=== PATIENT | male | born 1945 | race Caucasian/White ===

== ENCOUNTER 2017-06-09 12:13 | Emergency (ER) | payer MEDICARE, BC ==
[~2017-06-09] VITALS: Ht 185.4 cm; Wt 95.3 kg
[2017-06-09] MEDS ORDERED: TETANUS AND DIPHTHERIA TOX/PF 0.5 ML VIAL. VAX IM ONE (13:00)
--- NOTE | 2017-06-09 13:07 | PHYS DOC ---
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 Patient complaining of headache and pain in his left knee after the fall patient rated his pain 3/10. Patient complaining of radiation of the pain to his neck and shoulders. Patient doesn't know about his last tetanus shot. Review of Systems Review of Systems Constitutional: Denies fever or chills [] Eyes: Denies change in visual acuity, redness, or eye pain [] HENT: Denies nasal congestion or sore throat [] Respiratory: Denies cough or shortness of breath [] Cardiovascular: No additional information not addressed in HPI [] GI: Denies abdominal pain, nausea, vomiting, bloody stools or diarrhea [] : Denies dysuria or hematuria [] Musculoskeletal: Denies back pain, reports joint pain [] Integument: Denies rash or skin lesions [] Neurologic: Denies focal weakness or sensory changes, reports headache [] Endocrine: Denies polyuria or polydipsia [] All other systems were reviewed and found to be within normal limits, except as documented in this note. Current Medications Current Medications Current Medications Medications (Trade) Dose Ordered Sig/Silverio Start Time Stop Time Status Last Admin Dose Admin Tetanus/ Diphtheria Toxoids Adsorbed (Tenivac Vial) 0.5 ml ONCE ONCE 06/09/17 12:45 06/09/17 12:46 UNV Allergies Allergies Allergies Coded Allergies Type Severity Reaction Last Updated Verified No Known Drug Allergies 06/09/17 No Physical Exam Physical Exam Constitutional: Well developed, well nourished, mild distress, non-toxic appearance. [] HENT: Normocephalic, bilateral external ears normal, oropharynx moist, no oral exudates, nose normal, 5 x 5 cm area of contusion and abrasion in occipital area. [] Eyes: PERRLA, EOMI, conjunctiva normal, no discharge. [] Neck: Normal range of motion, no tenderness, supple, no stridor. [] Cardiovascular:Heart rate regular rhythm, no murmur [] Lungs & Thorax: Bilateral breath sounds clear to auscultation [] Abdomen: Bowel sounds normal, soft, no tenderness, no masses, no pulsatile masses. [] Skin: Warm, dry, no erythema, no rash. [] Back: No tenderness, no CVA tenderness. [] Extremities: No tenderness, no cyanosis, no clubbing, ROM intact, no edema. Left knee without deformity or tenderness or ecchymosis, normal range of motion [] Neurologic: Alert and oriented X 3, normal motor function, normal sensory function, no focal deficits noted. [] Psychologic: Affect normal, judgement normal, mood normal. [] Current Patient Data Vital Signs Vital Signs Date Time Temp Pulse Resp B/P (MAP) Pulse Ox O2 Delivery O2 Flow Rate FiO2 06/09/17 12:30 98.1 82 18 99 Room Air EKG EKG [] Radiology/Procedures Radiology/Procedures CT head and neck was unremarkable, x-ray of left knee did not show fracture or dislocation[] Course & Med Decision Making Course & Med Decision Making Pertinent Imaging studies reviewed. (See chart for details) Impression of patient in ER showed 71-year-old male patient with history of inclusion body myositis and muscle weakness and frequent falling with a fall at home and head injury with scalp contusion and left knee pain. Patient had unremarkable CT head and neck and left knee. Patient did not want pain medication in ER. Tetanus shot was given in ER. Plan discharge patient home with Prescription of Tylenol No. 3 instruction to follow up with his primary care physician. [] Dragon Disclaimer Dragon Disclaimer This electronic medical record was generated, in whole or in part, using a voice recognition dictation system. Departure Departure: Impression: Primary Impression: Scalp contusion Additional Impressions: Fall at home Inclusion body myositis (IBM) Strain of left knee Head injury Disposition: HOME, SELF-CARE ([id number]) Condition: STABLE Referrals: JUDD JACOBO MD (PCP) Patient Instructions: Contusion, Fall Prevention and Home Safety, Muscle Cramps , [id number] Additional Instructions: Apply ice on the affected area Follow-up with your primary care physician in 3-5 days Return as needed Scripts Acetaminophen With Codeine (TYLENOL WITH CODEINE #3 TABLET) 1 Each Tablet 1 TAB PO Q4-6HRS, #30 TAB Prov: GILL ENGLISH MD 06/09/17 Problem Qualifiers GILL ENGLISH MD Jun 09, 2017 13:07
--- NOTE | 2017-06-09 13:19 | RAD ---
Indication: Fall and left knee pain. Time of exam 1301 hours. 3 views of the left knee were obtained. Alignment is normal. The joint spaces are well maintained. Articular surfaces are smooth. No fracture, dislocation or effusion is seen. Impression: No acute abnormality is detected.
--- NOTE | 2017-06-09 13:26 | RAD ---
Indication: Fall with laceration to the back of the head. Axial imaging through the brain and cervical spine was performed without contrast. Sagittal and coronal reformations were also performed. CT brain: The ventricular size and sulcal pattern are normal. 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 No sulcal effacement, midline shift or hemorrhage is detected. Cisterns are patent. The visualized. Nasal sinuses are clear apart from mucosal thickening of ethmoid air cells. Impression: No acute intracranial process is detected. CT cervical spine: Curvature and alignment is normal. There are postop changes of ACDF with anterior plate and screws transfixing the CT 3-4 level. The prevertebral tissues are normal. No fractures are seen. The odontoid appears intact. Multilevel degenerative disc and facet disease is seen. Impression: Postsurgical and chronic changes. No acute bony abnormality is detected. PQRS Compliance Statement: One or more of the following individualized dose reduction techniques were utilized for this examination: 1. Automated exposure control 2. Adjustment of the mA and/or kV according to patient size 3. Use of iterative reconstruction technique
[2017-06-09] MEDS ORDERED: ACET-704 PO (13:50)
[2017-06-09 14:09] VITALS: BP 132/87
== END 2017-06-09 14:10 | disposition home or self-care (01) ==
LOC: ER 12:13
DX: S86.912A Strain of unspecified muscle(s) and tendon(s) at lower leg level, left leg, initial encounter (principal); S00.03XA Contusion of scalp, initial encounter; I10 Essential (primary) hypertension; G72.41 Inclusion body myositis [IBM]; Z91.81 History of falling; W10.8XXA Fall (on) (from) other stairs and steps, initial encounter; Y93.89 Activity, other specified; Y99.8 Other external cause status; Y92.59 Other trade areas as the place of occurrence of the external cause
CPT/HCPCS: 70450; 72125; 73562; 90471; 90714; 99284-25

== ENCOUNTER → 2017-12-01 | Outpatient (CLI) | payer MEDICARE, BC ==
[~2017-12-01] MED LIST: ACET-704 PO
--- NOTE | 2017-12-01 12:35 | RAD ---
Left lower extremity venous Doppler ultrasound History: lt medial calf pain x's 3 days Comparison: None. Procedure: Color flow Doppler, Doppler spectral analysis, and 2D images are obtained with and without compression in the area of the common femoral vein, superficial femoral vein - femoral vein junction, main femoral vein (superficial femoral vein) and popliteal vein. Veins of the proximal calf are also imaged. Findings: There is normal color flow, augmentation, and compressibility of all visualized vein segments. No evidence of deep venous thrombus is present. There is a popliteal fossa cyst that appears to dissect down into the upper calf. Length is at least 4.5 cm. Measures approximately 0.8 cm AP by 2.4 cm transverse. IMPRESSION: No evidence of left lower extremity deep venous thrombosis. Electronically signed by: Lucio Suggs MD (12/01/2017 12:31 PM) [id number]
== END | disposition home or self-care (01) ==
LOC: US 10:51
PROVIDERS: ATTEND Physician Assistant
DX: M79.662 Pain in left lower leg (principal)
CPT/HCPCS: 93971

== ENCOUNTER 2018-11-18 18:31 | Emergency (ER) | payer MEDICARE, BC ==
[~2018-11-18] VITALS: Ht 185.4 cm; Wt 95.3 kg
--- NOTE | 2018-11-18 18:57 | PHYS DOC ---
Past History Past Medical History: Hypertension Additional Past Medical Histor: inclusion body myositis Past Surgical History: No Surgical History Alcohol Use: Occasionally Drug Use: None Adult General Chief Complaint Chief Complaint: LOWER EXT PAIN HPI HPI Patient is a 72 year old male who presents with complaint of left foot pain. The patient states that he suffered a fall less than an hour prior to arrival. Patient states that he has history of inclusion body myositis and has had history of frequent falls. States that he lost his balance, causing him to fall back. The patient states that his bottom fell close to his heels before falling back. The patient states that he was able to catch himself but did bump the back of his head on the ground. Denies headache or loss of consciousness. Patient states that currently he is experiencing very sharp pain to the third and fourth toes on his left foot. Denies pain to the ankle, lower leg, knee, or hip. States that range of motion is intact in his lower extremities. States that the pain severely worsens when he tries to move his toes on the left foot. Has not taken any medications to help with his symptoms since the fall. Review of Systems Review of Systems Constitutional: Denies fever or chills [] Eyes: Denies change in visual acuity, redness, or eye pain [] HENT: Denies nasal congestion or sore throat [] Respiratory: Denies cough or shortness of breath [] Cardiovascular: Denies chest pain or edema[] GI: Denies abdominal pain, nausea, vomiting, bloody stools or diarrhea [] : Denies dysuria or hematuria [] Musculoskeletal: Toe pain[] Integument: Denies rash or skin lesions [] Neurologic: Denies headache, focal weakness or sensory changes [] All other systems were reviewed and found to be within normal limits, except as documented in this note. Allergies Allergies Allergies Coded Allergies Type Severity Reaction Last Updated Verified No Known Drug Allergies 06/09/17 No Physical Exam Physical Exam Constitutional: Alert, afebrile, appears in mild discomfort. [] HENT: Normocephalic, atraumatic, bilateral external ears normal, oropharynx moist, no oral exudates, nose normal. [] Eyes: PERRLA, EOMI, conjunctiva normal, no discharge. [] Neck: Normal range of motion, no tenderness, supple, no stridor. [] Cardiovascular:Heart rate regular rhythm, no murmur [] Lungs & Thorax: Bilateral breath sounds clear to auscultation [] Abdomen: Bowel sounds normal, soft, no tenderness, no masses, no pulsatile masses. [] Skin: Warm, dry, no erythema, no rash. [] Back: No tenderness, no CVA tenderness. [] Extremities: Deformity of the left fourth toe at the PIP joint with tenderness to palpation, tenderness to palpation at base of left third toe, no midfoot or ankle tenderness to palpation, normal range of motion of all major joints, no cyanosis, no clubbing, ROM intact, no edema. [] Neurologic: Alert and oriented X 3, normal motor function, normal sensory function, no focal deficits noted. [] Current Patient Data Vital Signs Vital Signs Date Time Temp Pulse Resp B/P (MAP) Pulse Ox O2 Delivery O2 Flow Rate FiO2 11/18/18 18:31 84 16 98 Room Air Lab Results Not performed EKG EKG Not performed[] Radiology/Procedures Radiology/Procedures 3 view left foot x-ray interpreted by me: Dorsal lateral dislocation of fourth digit at the PIP joint[] Course & Med Decision Making Course & Med Decision Making Pertinent Labs and Imaging studies reviewed. (See chart for details) X-ray showed evidence of left fourth toe PIP dislocation. This was reduced in the emergency department with direct traction by myself after verbal consent was given. No anesthesia was required. Patient is moving the affected toe with better range of motion and alignment appears improved after reduction. Postreduction x-rays were not ordered as symptoms have improved at this time. The toes were bobbi taped together and patient provided with an postoperative shoe in the emergency department. Advised to use roller walker as needed to help prevent further falls. Advised follow-up with primary doctor in the next 3-5 days for reevaluation and return to emergency department for any worsening symptoms. Patient was understanding and in agreement with treatment plan. Dragon Disclaimer Dragon Disclaimer This electronic medical record was generated, in whole or in part, using a voice recognition dictation system. Departure Departure: Impression: Primary Impression: Toe joint dislocation Additional Impression: Fall from standing Disposition: HOME, SELF-CARE Condition: IMPROVED Referrals: JUDD JACOBO MD (PCP) Patient Instructions: Fall Prevention and Home Safety, Toe Dislocation Additional Instructions: Follow-up with your primary doctor in the next 3-5 days for reevaluation. Return to the emergency department for any worsening symptoms. Problem Qualifiers Primary Impression: Toe joint dislocation Encounter type: initial encounter Laterality: left Qualified Codes: S93.105A - Unspecified dislocation of left toe(s), initial encounter Additional Impression: Fall from standing Encounter type: initial encounter Qualified Codes: W19.XXXA - Unspecified fall, initial encounter KARAN DURBIN MD November 18, 2018 18:57
[2018-11-18 21:06] VITALS: BP 142/72
--- NOTE | 2018-11-19 | RAD ---
Three-view left foot radiographs 11/18/2018 CLINICAL HISTORY: Fall with injury to the left foot. AP, lateral and oblique digital radiographs left foot were obtained. There is diffuse osteopenia the visualized bony structures. Question subluxation of the middle phalanx of the left fourth toe at the level of the PIP joint is noted. Clinical correlation with the patient's injury is recommended. No fracture is seen. Mild to moderate degenerative changes are seen throughout the interphalangeal joints of the first MTP and tarsometatarsal joints of the left foot. IMPRESSION: Question subluxation of the PIP joint of the left fourth toe. Clinical correlation with the patient's injury is recommended. No fracture is seen. Electronically signed by: Ji Johnson MD (11/18/2018 11:57 PM) [facility]
== END 2018-11-18 21:00 | disposition home or self-care (01) ==
LOC: ER 18:31
DX: S93.115A Dislocation of interphalangeal joint of left lesser toe(s), initial encounter (principal); G72.41 Inclusion body myositis [IBM]; I10 Essential (primary) hypertension; Z91.81 History of falling; W18.39XA Other fall on same level, initial encounter; Y93.89 Activity, other specified; Y92.89 Other specified places as the place of occurrence of the external cause; Y99.8 Other external cause status
CPT/HCPCS: 28660; 73630; 99284

== ENCOUNTER → 2019-03-15 | Outpatient (CLI) | payer MEDICARE, BC ==
[~2019-03-15] MED LIST changes: +IOHEXOL 240 MG/ML 50ML VIAL. ONE; +IOHEXOL 240 MG/ML 50ML VIAL. PO ONE; +IOHEXOL 300 MG/ML 75 ML VIAL. IV ONE
--- NOTE | 2019-03-15 16:55 | RAD ---
Examination: CT ABD PELV W/ORAL IV CONTRAST History: Epigastric abdominal tenderness Comparison/Correlation: None Findings: Axial images of the abdomen and pelvis were obtained following IV and oral contrast. Sagittal and coronal images were provided. Small hiatal hernia is present. Coronary arterial calcifications noted. Small hiatal hernia is present. Left hepatic dome segment 2 cyst measuring 2.7 cm in diameter is present. Smaller cystic lesions are present about the intrahepatic inferior vena cava. Linear low attenuation involving the left hepatic lobe is present which may represent underlying biliary prominence. The gallbladder fossa is unremarkable. Spleen, pancreas, adrenal glands are unremarkable. Multiple bilateral renal cysts are present. Calcific septation of a right renal cyst medially at the upper pole is noted. This cyst measures up to 3.1 cm diameter. Calcification of the wall of the right renal lower pole cyst is also evident. Small umbilical hernia contains fat. Appendix is normal. Diverticulosis is present without findings of acute inflammation. Calcific involvement of the abdominal aorta and iliac arteries noted. Significant calcific involvement of the right common femoral artery in particular noted. Urinary bladder is unremarkable. Moderate L5-S1 disc space narrowing is present. Impression: Small hiatal hernia. No acute inflammatory process. Renal cysts are present and some have calcific involvement. Correlation with ultrasound exam is recommended if stability is unknown. Diverticulosis. PQRS Compliance Statement: One or more of the following individualized dose reduction techniques were utilized for this examination: 1. Automated exposure control 2. Adjustment of the mA and/or kV according to patient size 3. Use of iterative reconstruction technique Electronically signed by: Pedro Tomas MD (03/15/2019 4:52 PM) [facility]
== END | disposition home or self-care (01) ==
LOC: CT 08:12
PROVIDERS: ATTEND Family Medicine
DX: K44.9 Diaphragmatic hernia without obstruction or gangrene (principal); K76.89 Other specified diseases of liver; N28.1 Cyst of kidney, acquired; K42.9 Umbilical hernia without obstruction or gangrene; K57.90 Diverticulosis of intestine, part unspecified, without perforation or abscess without bleeding; I25.10 Atherosclerotic heart disease of native coronary artery without angina pectoris; J44.9 Chronic obstructive pulmonary disease, unspecified; I10 Essential (primary) hypertension; N28.89 Other specified disorders of kidney and ureter; M48.07 Spinal stenosis, lumbosacral region
CPT/HCPCS: 74177; Q9966

== ENCOUNTER → 2019-03-22 | Outpatient (CLI) | payer MEDICARE, BC ==
[~2019-03-22] MED LIST changes: -IOHEXOL 240 MG/ML 50ML VIAL. ONE; -IOHEXOL 240 MG/ML 50ML VIAL. PO ONE; -IOHEXOL 300 MG/ML 75 ML VIAL. IV ONE
--- NOTE | 2019-03-22 16:10 | RAD ---
Examination: RENAL COMPLETE BILATERAL History: Renal cysts Comparison/Correlation: None Findings: Right kidney measures 12.6 x 6.1 cm x 6.7 cm. At its superior pole, there is a 1.3 cm x 6.9 cm x 8.6 mm diameter cyst. Additional smaller cysts are present involving the right kidney. Few thin septations are present. No mass component or suspicious septations. Left kidney measures 10.9 cm x 6 mL by 6 x 1 cm. Superior pole cyst measuring 5.8 cm x 4.8 cm x 5 cm is present. Additional smaller cysts are present. No mass component. A few thin septations are present. No hydronephrosis or nephrolithiasis. Renal cortical echotexture is unremarkable. Renal contours are otherwise unremarkable. A few calculi are present in the gallbladder with the largest of these measuring up to 1.2 cm diameter. Inferior vena cava is unremarkable. Urinary bladder volume is 147 cc. Impression: Bilateral renal cysts. No suspicious components. Cholelithiasis. Electronically signed by: Pedro Tomas MD (03/22/2019 4:07 PM) [facility]
== END | disposition home or self-care (01) ==
LOC: US 09:43
PROVIDERS: ATTEND Family Medicine
DX: N28.1 Cyst of kidney, acquired (principal); K80.20 Calculus of gallbladder without cholecystitis without obstruction
CPT/HCPCS: 76770

== ENCOUNTER 2020-10-20 16:55 | Emergency (ER) | payer MEDICARE, BC ==
[~2020-10-20] VITALS: Ht 185.4 cm; Wt 85.5 kg
[2020-10-20 17:38] VITALS: BP 120/77
--- NOTE | 2020-10-20 18:06 | PHYS DOC ---
Past History Past Medical History: GERD, Hypertension Additional Past Medical Histor: inclusion body myositis Past Surgical History: No Surgical History Alcohol Use: None Drug Use: None General Adult EDM: Chief Complaint: NAUSEA/VOMITING/DIARRHEA HPI: HPI: ".. I think I got sick after eating at [employer].. on . " " My bobbi who I was eating with did not get sick...".." I think it probably food poisoning..." It is just that I am starting to feel a little rundown".." I am very distended and gassy...".." And now I noticed some blood in my urine.." Patient is a 74 year old male who presents with above hx of nausea, vomiting, diarrhea, bloating, malaise since Thursday after eating at [employer]. Patient denies any recent travel. No specific ill contacts. Normally fairly healthy with exception of a diagnosis of inclusional body myositis. The patient follows with Dr. Pandya. Patient's previous Covid's have been negative. Patient has history of GERD and hypertension. Patient denies any previous history of kidney stones. No history of trauma. Review of Systems: Review of Systems: Constitutional: Denies fever or chills Eyes: Denies change in visual acuity HENT: Denies nasal congestion or sore throat Respiratory: Denies cough or shortness of breath Cardiovascular: Denies chest pain or edema GI: Complains of abdominal discomfort, nausea, vomiting, diarrhea and bloating : Denies dysuria. Complains of some hematuria Musculoskeletal: Denies back pain or joint pain Integument: Denies rash Neurologic: Denies headache, focal weakness or sensory changes Endocrine: Denies polyuria or polydipsia Lymphatic: Denies swollen glands Psychiatric: Denies depression or anxiety Family History: Family History: Noncontributory presentation Current Medications: Current Meds: See nursing for home meds Allergies: Allergies: Allergies Coded Allergies Type Severity Reaction Last Updated Verified No Known Drug Allergies 06/09/17 No Physical Exam: PE: Constitutional: Moderate acute distress, non-toxic appearance. [] HENT: Normocephalic, atraumatic, bilateral external ears normal, oropharynx dry, no oral exudates, nose normal. [] Eyes: PERRLA, EOMI, conjunctiva normal, no discharge. [] Neck: Normal range of motion, no tenderness, supple, no stridor. [] Cardiovascular:Heart rate regular rhythm, no murmur [] Lungs & Thorax: Bilateral breath sounds equal at apex on auscultation [] Abdomen: Bowel sounds hyperactive, soft, generalized tenderness, no masses, no pulsatile masses. No focal areas of rebound. Very tympanic and distended. Skin: Warm, dry, no erythema, no rash. [] Back: No tenderness, no CVA tenderness. [] Extremities: No tenderness, no cyanosis, no clubbing, ROM intact, no edema. No psoas sign Neurologic: Alert and oriented X 3, normal motor function, normal sensory function, no focal deficits noted. [] Psychologic: Affect anxious, judgement normal, mood normal. [] Current Patient Data: Vital Signs: Vital Signs Date Time Temp Pulse Resp B/P (MAP) Pulse Ox O2 Delivery O2 Flow Rate FiO2 10/20/20 17:38 98.0 87 18 120/77 (91) 97 EKG: EKG: [] Radiology/Procedures: Radiology/Procedures: [][place] [address] IMAGING REPORT Signed PATIENT: CELINE LEONARDO ACCOUNT: [id number] : 1945 LOCATION: ER AGE: 74 SEX: M EXAM STATUS: REG ER ORD. PHYSICIAN: WERO SIMMS MD REASON: hematuria, n/v PROCEDURE: ACUTE ABDOMEN SERIES Exam: Acute abdominal series INDICATION: Hematuria TECHNIQUE: Frontal view of the chest with upright and supine views Comparisons: None FINDINGS: The cardiomediastinal silhouette and pulmonary vessels are within normal limits. The lung and pleural spaces are clear. Air and stool are noted throughout the colon to level the rectum in a nonobstructive bowel gas pattern. No suspicious masses or calcifications. Visualized osseous structures are unremarkable. IMPRESSION: 1. No acute cardiopulmonary process. 2. Nonobstructive bowel gas pattern. Electronically signed by: Cristiano Marie MD (10/20/2020 6:51 PM) [facility] DICTATED AND SIGNED BY: CRISTIANO MARIE MD DATE: 10/20/20 1850 CC: JUDD PANDYA MD; WERO SIMMS MD ~MTH0 0 Heart Score: C/O Chest Pain: N/A Risk Factors: Risk Factors: DM, Current or recent (<one month) smoker, HTN, HLP, family history of CAD, obesity. Risk Scores: Score 0 - 3: 2.5% MACE over next 6 weeks - Discharge Home Score 4 - 6: 20.3% MACE over next 6 weeks - Admit for Clinical Observation Score 7 - 10: 72.7% MACE over next 6 weeks - Early Invasive Strategies Course & Med Decision Making: Course & Med Decision Making Pertinent Labs and Imaging studies reviewed. (See chart for details) Patient received boluses of fluid and Zofran. With reports marked improvement of his overall symptoms. Patient recommended to stay on a clear fluid diet for the next 2 days. No solids no milk products. Follow-up pending labs. Follow- up with Dr. Pandya. Return if any concerns. If active vomiting may take Zofran. Return if any concerns. Must have follow-up UA and make sure hematuria has resolved. Impression: 1. Suspect food poisoning versus viral gastroenteritis 2. Dehydration 3. Hematuria 4. History of inclusion body myositis 5. Mild elevation AST 54 and ALT 71 [] Dragon Disclaimer: Dragon Disclaimer: This electronic medical record was generated, in whole or in part, using a voice recognition dictation system. Departure Departure: Referrals: JUDD PANDYA MD (PCP) Scripts Ondansetron Hcl (ZOFRAN) 4 Mg Tablet 8 MG PO QIDPRN PRN for NAUSEA/VOMITING, #30 TAB Prov: WERO SIMMS MD 10/20/20 Dragon Disclaimer This chart was dictated in whole or in part using Voice Recognition software in a busy, high-work load, and often noisy Emergency Department environment. It may contain unintended and wholly unrecognized errors or omissions. Dragon Disclaimer This chart was dictated in whole or in part using Voice Recognition software in a busy, high-work load, and often noisy Emergency Department environment. It may contain unintended and wholly unrecognized errors or omissions. WERO SIMMS MD October 20, 2020 18:05
[2020-10-20] MEDS ORDERED: FAMOTIDINE 20 MG/2 ML VIAL IVP ONE (18:15)
[2020-10-20] MEDS ORDERED: KETOROLAC 30 MG/ML VIAL. IVP ONE (18:15)
[2020-10-20] MEDS ORDERED: IV RINGERS SOLUTION,LACTATED 1,000 ML IV SCH (18:15)
[2020-10-20] MEDS ORDERED: ONDANSETRON PF 4 MG/2 ML VIAL. IVP ONE (18:15)
[2020-10-20 18:21] LABS: CALCIUM 8.7 mg/dL (8.5-10.1); CREATININE 0.8 mg/dL (0.7-1.3); POTASSIUM 4.1 mmol/L (3.5-5.1)
[2020-10-20 18:28] LABS: ALBUMIN 3.9 g/dL (3.4-5.0); DIRECT BILIRUBIN 0.3 mg/dL (0.0-0.2); TOTAL BILIRUBIN 0.8 mg/dL (0.2-1.0); TOTAL PROTEIN 7.3 g/dL (6.4-8.2)
[2020-10-20 18:46] LABS: BASO % 1 % (0-3); EOS # 0.1 x10^3/uL (0.0-0.7); EOS % 3 % (0-3); HEMOGLOBIN 15.6 g/dL (13.0-17.5); LYMPH # 1.4 x10^3/uL (1.0-4.8); LYMPH % 26 % (24-48); MEAN CORPUSCULAR HEMOGLOBIN 32 pg (25-35); MEAN CORPUSCULAR HGB CONC 34 g/dL (31-37); MEAN CORPUSCULAR VOLUME 95 fL (79-100); MONO # 0.7 x10^3/uL (0.0-1.1); MONO % 13 % (0-9); NEUT # 3.1 x10^3uL (1.8-7.7); NEUT % 59 % (31-73); PLATELET COUNT 154 x10^3/uL (140-400); RED BLOOD COUNT 4.85 x10^6/uL (4.30-5.70); RED CELL DISTRIBUTION WIDTH 12.8 % (11.5-14.5); WHITE BLOOD COUNT 5.4 x10^3/uL (4.0-11.0)
[2020-10-20 18:52] LABS: BILIRUBIN,URINE NEG (NEG); CLARITY,URINE CLEAR; COLOR,URINE AMBER; GLUCOSE,URINE NEG (NEG); NITRITE,URINE NEG (NEG)
[2020-10-20 18:53] LABS: BACTERIA,URINE 0 /HPF (0-FEW); RBC,URINE >40 /HPF (0-2); WBC,URINE 0 /HPF (0-4)
--- NOTE | 2020-10-20 18:53 | RAD ---
Exam: Acute abdominal series INDICATION: Hematuria TECHNIQUE: Frontal view of the chest with upright and supine views Comparisons: None FINDINGS: The cardiomediastinal silhouette and pulmonary vessels are within normal limits. The lung and pleural spaces are clear. Air and stool are noted throughout the colon to level the rectum in a nonobstructive bowel gas patter n. No suspicious masses or calcifications. Visualized osseous structures are unremarkable. IMPRESSION: 1. No acute cardiopulmonary process. 2. Nonobstructive bowel gas pattern. Electronically signed by: Cristiano Stevens MD (10/20/2020 6:51 PM) [facility]
[2020-10-20] MEDS ORDERED: ONDA4TAB7 PO (19:43)
== END 2020-10-20 20:27 | disposition home health service (06) ==
LOC: ER 16:55
DX: E86.0 Dehydration (principal); R31.9 Hematuria, unspecified; R79.89 Other specified abnormal findings of blood chemistry; K21.9 Gastro-esophageal reflux disease without esophagitis; I10 Essential (primary) hypertension
CPT/HCPCS: 36415; 74022; 80048; 80076; 81001; 82150; 82550; 83690; 84484; 85025; 85610; 85730; 96361; 96374; 96375; 99284; J1885; J2405; J3490; J7120

== ENCOUNTER → 2020-10-31 | Outpatient (CLI) | payer MEDICARE, BC ==
[2020-10-20 17:38] VITALS: BP 120/77
[~2020-10-31] MED LIST changes: +IOHEXOL 300 MG/ML 75 ML VIAL. IV ONE; +ONDA4TAB7 PO
--- NOTE | 2020-10-31 14:23 | RAD ---
CT ABDOMEN+PELVIS WO+W History: Gross hematuria. Comparison: CT abdomen and pelvis 03/15/2019 Technique: CT angiogram of the abdomen and pelvis with noncontrast, nephrographic and excretory phase series after intravenous contrast. Findings: The lung bases are clear. No pleural or pericardial effusion. Moderate coronary artery calcification. A few benign hepatic cysts, the largest measures 2.2 cm in the left hepatic lobe. Diffuse hepatic hyp odensity compatible steatosis. Layering density in the gallbladder suggest small stones or sludge. No biliary ductal dilatation. The pancreas, spleen and adrenal glands are unremarkable. Multiple bilateral renal cysts. A large 7.9 x 6.7 cm cyst at the inferior pole of the right kidney de monstrates a septation with focally thickened calcification. A 4.6 x 3.1 cm cyst at the interpolar ri ght kidney demonstrates a thin septation with slightly thickened calcification. A 2.3 x 1.9 cm left r enal interpolar cyst demonstrates a few subtle septations. No enhancing renal masses are identified. No hydronephrosis or nephrolithiasis identified. Excretory images demonstrate normally opacified uret ers and renal pelvises without mass identified. No intravesicular masses identified. The bladder wall is mildly thickened diffusely. There is inferior mass effect on the bladder from the enlarged prosta te. Small hiatal hernia. There is colonic diverticulosis without evidence for diverticulitis. Aortoiliac atherosclerotic calcification without aneurysm. No abdominal pelvic adenopathy. No intraperitoneal fr ee air or free fluid. Small fat-containing umbilical hernia. Fat contained within the right greater than left inguinal loy ls. Degenerative changes of the spine without acute osseous abnormality or suspicious lytic or sclero tic lesion. Impression: 1. Bilateral Bosniak 2 renal lesions. Recommend follow-up renal CT in one year. 2. Mild diffuse bladder wall thickening and mass effect from the prostate of the inferior bladder. C orrelate for outlet obstruction. No urothelial lesion identified as source of hematuria. 3. Hepatic steatosis. 4. Diverticulosis without diverticulitis. ------ Exposure: One or more of the following individualized dose reduction techniques were utilized for thi s examination: 1. Automated exposure control 2. Adjustment of the mA and/or kV according to patient size 3. Use of iterative reconstruction technique. Electronically signed by: Flo Mohamud MD (10/31/2020 2:21 PM) [facility]
== END ==
LOC: CT 11:09
PROVIDERS: ATTEND Family Medicine
DX: N28.1 Cyst of kidney, acquired (principal); K76.89 Other specified diseases of liver; K44.9 Diaphragmatic hernia without obstruction or gangrene; K42.9 Umbilical hernia without obstruction or gangrene; K76.0 Fatty (change of) liver, not elsewhere classified
CPT/HCPCS: 74178; Q9967

== ENCOUNTER 2021-03-01 11:40 | Emergency (ER) | payer MEDICARE, BC ==
[~2021-03-01] VITALS: Ht 177.8 cm; Wt 86.4 kg
[~2021-03-01 11:40] MED LIST changes: -IOHEXOL 300 MG/ML 75 ML VIAL. IV ONE
--- NOTE | 2021-03-01 12:02 | PHYS DOC ---
Past History Past Medical History: GERD, Hypertension Additional Past Medical Histor: inclusion body myositis, BPH Past Surgical History: Other Additional Past Surgical Histo: vasectomy, cervical discectomy with fusion Alcohol Use: None Drug Use: None General Adult EDM: Chief Complaint: MECHANICAL FALL HPI: HPI: Patient is a 75-year-old male brought by EMS after a fall with loss of consciousness. EMS was to let bystanders that they estimate his lost consciousness to be about 2 minutes. Patient states that he was at the grocery store outside on the concrete when his car started going from needed shuffle to reach out to get it his knees "buckled" and he fell striking the back of his head. Denies any blood thinner use. States he gets dizzy with laying flat. Last tetanus 7 years ago. Complaining of pain in bilateral knees and the back of head. Has a history of inclusion body myositis diagnosed in 2013. Review of Systems: Review of Systems: All other systems within normal limits except for as noted in the HPI Allergies: Allergies: Allergies Coded Allergies Type Severity Reaction Last Updated Verified No Known Drug Allergies 06/09/17 No Physical Exam: PE: Constitutional: Well developed, well nourished, no acute distress, non-toxic appearance. [] HENT: Normocephalic, atraumatic, bilateral external ears normal, nose normal. [] Eyes: PERRLA, conjunctiva normal, no discharge. [] Neck: No rigidity, supple, no stridor. [] Cardiovascular: Regular rate and rhythm, brisk cap refill [] Lungs & Thorax: Non labored symmetric respirations, no tachypnea or respiratory distress [] Abdomen: Soft, nondistended. Skin: Warm, dry, no erythema, no rash. [] Back: Unremarkable Extremities: No deformities, range of motion grossly intact, no lower extremity edema. Tenderness of bilateral knees [] Neurologic: Alert and oriented X 3, no focal deficits noted. [] Psychologic: Affect normal, judgement normal, mood normal. [] EKG: EKG: [] Radiology/Procedures: Radiology/Procedures: [address] [address] IMAGING REPORT Signed PATIENT: CELINE LEONARDO ACCOUNT: [id number] : 1945 LOCATION: ER AGE: 75 SEX: M EXAM STATUS: REG ER ORD. PHYSICIAN: DIAMOND FRANCO MD REASON: fall, loc, hit back of head PROCED[facility]: [facility] Compliance Statement: One or more of the following individualized dose reduction techniques were utilized for this examination: 1. Automated exposure control 2. Adjustment of the mA and/or kV according to patient size 3. Use of iterative reconstruction technique CT head and cervical spine without contrast 03/01/2021 12:22 PM INDICATION: Fall, loss of consciousness. Hit back of head. COMPARISON: CT head and cervical spine 06/09/2017 TECHNIQUE: Multiple axial CT images of the head were obtained from skull base through the vertex without intravenous contrast. Multiple axial CT images of the cervical spine were obtained without intravenous contrast. Coronal and sagittal reformats are provided. FINDINGS: Head: Ventricles, sulci and basal cisterns are within normal limits. Remote lacunar infarct identified within the right posterior limb internal capsule. There is no hydrocephalus. Unger-white matter differentiation is normal. There is no acute intracranial hemorrhage. There is no mass, mass effect or midline shift. Posterior fossa is normal in appearance. Senescent calcifications identified in the basal ganglia. Low-attenuation in the periventricular white matter is suggestive of chronic small vessel ischemic changes. Visualized portions of the orbits are normal. Paranasal sinuses are well aerated. Mastoid air cells are well aerated. Scalp and calvaria are normal. Cervical spine: Skull base is intact. Craniocervical junction is normal in appearance. Atlantoaxial articulation is normal. Vertebral body heights are maintained without evidence for acute fracture. Anterior cervical discectomy and fusion hardware is identified at C3-C4. There is no lucency surrounding the hardware. There is partial osseous fusion of C4-C5 with ossification along the disc space. There is 2 mm anterolisthesis of C5 on C6. There is facet fusion at C3-C4 and C4-C5 bilaterally. At C2-C3, there is no significant disc herniation. There is moderate severe right and moderate left facet arthropathy. Moderate right and mild to moderate left neuroforaminal stenosis. At C4-C5, there is a posterior disc osteophyte complex with severe right and moderate left facet arthropathy and mild uncovertebral joint disease resulting in moderate bilateral neuroforaminal stenosis. At C6-C7, there is a posterior disc osteophyte complex with central disc protrusion. Moderate facet and uncovertebral joint disease. Mild bilateral neuroforaminal stenosis. Mild spinal canal stenosis. There is no prevertebral soft tissue swelling. Thyroid gland is normal in appearance. Visualized portions of the lung apices are normal without evidence for suspicious pulmonary nodule or infiltrate. IMPRESSION: 1. No acute intracranial hemorrhage. Remote lacunar infarct in the posterior limb right internal capsule. Low-attenuation in the periventricular white matter is suggestive of chronic small vessel ischemic changes. 2. No acute fracture of the cervical spine. Anterior cervical discectomy and fusion identified at C3-C4 without evidence for hardware failure. Mild to moderate cervical spondylosis as detailed above. Electronically signed by: Erick Bryant MD (03/01/2021 1:27 PM) [id number] DICTATED AND SIGNED BY: ERICK BRYANT MD DATE: 03/01/21 1308 CC: JUDD JACOBO MD; DIAMOND FRANCO MD ~MTH0 0 [][place] [id number] IMAGING REPORT Signed PATIENT: CELINE LEONARDO ACCOUNT: [id number] : 1945 LOCATION: ER AGE: 75 SEX: M EXAM STATUS: REG ER ORD. PHYSICIAN: DIAMOND FRANCO MD REASON: fall, bilateral knee pain PROCEDURE: KNEE BILAT 3V EXAM: XR KNEE 3 VIEWS 03/01/2021 12:22 PM CLINICAL INDICATION: Fall, bilateral knee pain COMPARISON: None TECHNIQUE: 3 views of the right and left knee FINDINGS: Left knee: There is a suspected avulsion fracture of the tibial tuberosity with soft tissue thickening and irregularity of the patellar tendon and pretibial edema. No other fracture. The bones are demineralized. No joint effusion. Right knee: No acute fracture there is suspected avulsion injury of the tibial tuberosity with irregular appearance of the patellar tendon stripe and pretibial soft tissue swelling. No other fracture or malalignment. No joint effusion. Joint spaces are maintained. The bones are diffusely demineralized. IMPRESSION: Findings of bilateral patellar tendon avulsion injuries with small avulsion fractures of the tibial tuberosities and abnormal appearance of the patellar tendon demonstrates. Moderate overlying soft tissue swelling. Electronically signed by: Diamond Berry MD (03/01/2021 12:46 PM) [id number] DICTATED AND SIGNED BY: DIAMOND BERRY MD DATE: 03/01/21 1242 CC: JUDD JACOBO MD; DIAMOND FRANCO MD ~MTH0 0 Heart Score: C/O Chest Pain: No Risk Factors: Risk Factors: DM, Current or recent (<one month) smoker, HTN, HLP, family hi story of CAD, obesity. Risk Scores: Score 0 - 3: 2.5% MACE over next 6 weeks - Discharge Home Score 4 - 6: 20.3% MACE over next 6 weeks - Admit for Clinical Observation Score 7 - 10: 72.7% MACE over next 6 weeks - Early Invasive Strategies Course & Med Decision Making: Course & Med Decision Making Discussed with Dr. Montelongo, agrees with plan to put in knee immobilizer and follow-up in clinic. Holley Disclaimer: Holley Disclaimer: This electronic medical record was generated, in whole or in part, using a voice recognition dictation system. Departure Departure: Impression: Primary Impression: Fall Additional Impressions: Avulsion of patellar tendon Scalp hematoma Disposition: HOME / SELF CARE / HOMELESS Condition: STABLE Referrals: JUDD JACOBO MD (PCP) Patient Instructions: Knee Immobilizer-Brief Additional Instructions: Call to schedule appointment with Stan Montelongo DO [facility] [address] [place] [address] DIAMOND FRANCO MD Mar 01, 2021 12:02
--- NOTE | 2021-03-01 12:49 | RAD ---
EXAM: XR KNEE 3 VIEWS 03/01/2021 12:22 PM CLINICAL INDICATION: Fall, bilateral knee pain COMPARISON: None TECHNIQUE: 3 views of the right and left knee FINDINGS: Left knee: There is a suspected avulsion fracture of the tibial tuberosity with soft tissue thickenin g and irregularity of the patellar tendon and pretibial edema. No other fracture. The bones are demin eralized. No joint effusion. Right knee: No acute fracture there is suspected avulsion injury of the tibial tuberosity with irregu lar appearance of the patellar tendon stripe and pretibial soft tissue swelling. No other fracture or malalignment. No joint effusion. Joint spaces are maintained. The bones are diffusely demineralized. IMPRESSION: Findings of bilateral patellar tendon avulsion injuries with small avulsion fractures of the tibial tuberosities and abnormal appearance of the patellar tendon demonstrates. Moderate overly ing soft tissue swelling. Electronically signed by: Diamond Berry MD (03/01/2021 12:46 PM) [id number]
--- NOTE | 2021-03-01 13:30 | RAD ---
PQRS Compliance Statement: One or more of the following individualized dose reduction techniques were utilized for this examinat ion: 1. Automated exposure control 2. Adjustment of the mA and/or kV according to patient size 3. Use of iterative reconstruction technique CT head and cervical spine without contrast 03/01/2021 12:22 PM INDICATION: Fall, loss of consciousness. Hit back of head. COMPARISON: CT head and cervical spine 06/09/2017 TECHNIQUE: Multiple axial CT images of the head were obtained from skull base through the vertex with out intravenous contrast. Multiple axial CT images of the cervical spine were obtained without intrav enous contrast. Coronal and sagittal reformats are provided. FINDINGS: Head: Ventricles, sulci and basal cisterns are within normal limits. Remote lacunar infarct identified with in the right posterior limb internal capsule. There is no hydrocephalus. Unger-white matter differenti ation is normal. There is no acute intracranial hemorrhage. There is no mass, mass effect or midline shift. Posterior fossa is normal in appearance. Senescent calcifications identified in the basal gang matt. Low-attenuation in the periventricular white matter is suggestive of chronic small vessel ischem ic changes. Visualized portions of the orbits are normal. Paranasal sinuses are well aerated. Mastoid air cells a re well aerated. Scalp and calvaria are normal. Cervical spine: Skull base is intact. Craniocervical junction is normal in appearance. Atlantoaxial articulation is n ormal. Vertebral body heights are maintained without evidence for acute fracture. Anterior cervical discectomy and fusion hardware is identified at C3-C4. There is no lucency surround ing the hardware. There is partial osseous fusion of C4-C5 with ossification along the disc space. Th ere is 2 mm anterolisthesis of C5 on C6. There is facet fusion at C3-C4 and C4-C5 bilaterally. At C2-C3, there is no significant disc herniation. There is moderate severe right and moderate left f acet arthropathy. Moderate right and mild to moderate left neuroforaminal stenosis. At C4-C5, there i s a posterior disc osteophyte complex with severe right and moderate left facet arthropathy and mild uncovertebral joint disease resulting in moderate bilateral neuroforaminal stenosis. At C6-C7, there is a posterior disc osteophyte complex with central disc protrusion. Moderate facet and uncovertebral joint disease. Mild bilateral neuroforaminal stenosis. Mild spinal canal stenosis. There is no prevertebral soft tissue swelling. Thyroid gland is normal in appearance. Visualized port ions of the lung apices are normal without evidence for suspicious pulmonary nodule or infiltrate. IMPRESSION: 1. No acute intracranial hemorrhage. Remote lacunar infarct in the posterior limb right internal caps ule. Low-attenuation in the periventricular white matter is suggestive of chronic small vessel ischem ic changes. 2. No acute fracture of the cervical spine. Anterior cervical discectomy and fusion identified at C3- C4 without evidence for hardware failure. Mild to moderate cervical spondylosis as detailed above. Electronically signed by: Holli Penn MD (03/01/2021 1:27 PM) [id number]
[2021-03-01 14:45] VITALS: BP 124/66
== END 2021-03-01 14:48 | disposition home or self-care (01) ==
LOC: ER 11:40
DX: S83.005A Unspecified dislocation of left patella, initial encounter (principal); S83.004A Unspecified dislocation of right patella, initial encounter; S00.03XA Contusion of scalp, initial encounter; W18.39XA Other fall on same level, initial encounter; Y93.89 Activity, other specified; Y92.89 Other specified places as the place of occurrence of the external cause; Y99.8 Other external cause status; K21.9 Gastro-esophageal reflux disease without esophagitis; I10 Essential (primary) hypertension
CPT/HCPCS: 29505; 70450; 72125; 73562-50; 99285-25